=== PATIENT | female | born 1990 | race Caucasian/White ===

== ENCOUNTER 2018-11-09 12:53 | Inpatient (IN) ==
[2018-11-09] MEDS ORDERED: OXYTOCIN 30 UNITS/500 ML BAG IV PRN (15:17)
[2018-11-09] MEDS ORDERED: miSOPROStol 25 MCG TAB PV ONE (15:17)
--- NOTE | 2018-11-09 15:39 | History & Physical Report ---
Date of Service November 09, 2018 Assessment & Plan (1) Group B Streptococcus carrier state affecting : will start pcn when in labor (2) Prolonged , antepartum: Plan vaginal cytotec for cervical ripening. pitocin when indicated. arom when indicated. fetus categroy one. History of Present Illness Chief Complaint: induction Primary Care Provider: NO PCP Patient is a 28yowf with iup at 41 3/7 weeks who presents for induction of labor. Had attempted to place a larkin last night and was unsuccessful. No contractions/lof/vb. +FM. labs--O+/ab-/pap nl/ri/rprnr/hepb-/hiv-/gc/ct-/gtt x 2 nl/ declined cf/sma/genetics /gbs+ Allergies Allergy/AdvReac Type Severity Reaction Status Date / Time azithromycin [From Zithromax] Allergy Verified 11/02/18 14:34 cefixime [From Suprax] Allergy Verified 11/02/18 14:34 clomiphene [From Clomid] Allergy Verified 11/02/18 14:34 Home Medications Home Medications Medication Instructions Recorded Confirmed Type vit-iron fum-folic ac 1 tab PO DAILY 11/09/18 11/09/18 History [ Vitamin] Patient History Social History Preferred Language: Frisian Communication Ability: Effective Perinatal Director Required: No Beliefs That Will Affect Care: None marital status: Current Living Situation: Spouse Other Information That Helps Us Care for You: No Feels Safe at Home: Yes Safety Concerns: Feels Safe At This Time Smoking Status: Never smoker Do You Dip or Chew Tobacco: No ; Second Hand Exposure: No ; Tobacco Cessation Education Requested by Patient: No Hx Alcohol Use: No Hx Substance Use: No OB History g1--present 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 This is a spontaneous . no stds, no abnl paps. Review of Systems All systems reviewed & are unremarkable except as noted in HPI & below Physical Exam Constitutional: WD/WN, vitals as above Gastrointestinal (Abdomen): soft, gravid, nt Psychiatric: A+Ox3, euthymic affect Genitourinary: cx--cl/50/-2/post/mod toco--mpme ef,--120s with mod variability, accels to 150s, no decels. Results & Data Vital Signs (Past 12 Hours) Vital Signs Temp Pulse Resp BP 11/09/18 14:52 37.2 C 72 20 137/74 Code Status & VTE Plan VTE Prophylaxis Plan VTE Prophylaxis will be ordered: No
[2018-11-09] MEDS ORDERED: PENICILLIN G POTASSIUM 6 MU in DEXTROSE 5% 250 ML IV STA (15:42)
[2018-11-09 15:43] LABS: Hematocrit (blood only) 34.2 % (37-47); Hemoglobin 11.8 g/dL (12.0-16.0); Mean Corpuscular Hemoglobin 29.6 pg (25-34); Mean Corpuscular Volume 85.7 fL (80-100); Mean Platelet Volume 9.5 fL (7.4-10.4); Platelet Count 285 K/uL (130-400); RDW Coefficient of Variation 13.5 % (11.5-14.5); RDW Standard Deviation 41.6 fL (36.4-46.3); Red Blood Count 3.99 M/uL (4.2-5.4); White Blood Count 10.33 K/uL (4.8-10.8)
[2018-11-09 16:08] LABS: Mean Corpuscular Hgb Conc 34.5 g/dL (32-36)
--- NOTE | 2018-11-09 21:02 | Labor Progress Brief Note ---
Date of Service November 09, 2018 Subjective comfortable, not really feeling contractions Assessment & Plan (1) Supervision of normal intrauterine in primigravida: category one fetus (2) Unfavorable cervix in term : kayce too frequently for another cytotec and do not think going to be able to place larkin. Will wait a few hours and recheck. If contractions space, will place another cytotec or if think can get larkin in would do that with pitocin. agreeable to plan. Physical Exam Constitutional: WD/WN, vitals as above Psychiatric: A+Ox3, euthymic affect Genitourinary: cx--cl/50/-2 toco--q2-3min efm--category one Results & Data Vital Signs (Past 12 Hours) Vital Signs Temp Pulse Resp BP 11/09/18 19:05 37.1 C 16 11/09/18 19:02 70 134/77 11/09/18 18:11 69 130/73 11/09/18 18:10 37.2 C 20 11/09/18 14:52 37.2 C 72 20 137/74
--- NOTE | 2018-11-10 00:15 | Labor Progress Brief Note ---
Date of Service November 10, 2018 Subjective comfortable Assessment & Plan (1) Group B Streptococcus carrier state affecting : start pcn now (2) Unfavorable cervix in term : Still kayce too frequently for another cytotec. therefore, will proceed with low dose pitocin overnight and recheck cx in the am. fetus category one. patient agreeable. Physical Exam Constitutional: WD/WN, vitals as above Psychiatric: A+Ox3, euthymic affect Genitourinary: cx--deferred efm--130s with mod variability, accels to 160s, no decels toco--q2-3min Results & Data Vital Signs (Past 12 Hours) Vital Signs Temp Pulse Resp BP 11/09/18 19:05 37.1 C 16 11/09/18 19:02 70 134/77 11/09/18 18:11 69 130/73 11/09/18 18:10 37.2 C 20 11/09/18 14:52 37.2 C 72 20 137/74
[2018-11-10] MEDS: LACTATED RINGER'S 1,000 ML IV PRN ×5 (00:22→21:48)
[2018-11-10] MEDS: OXYTOCIN 30 UNITS/500 ML BAG IV PRN (00:44)
[2018-11-10] MEDS: PENICILLIN G POTASSIUM 3 MU in DEXTROSE 5% 100 ML IV PRN ×5 (04:17→20:11)
--- NOTE | 2018-11-10 06:58 | Labor Progress Brief Note ---
Date of Service November 10, 2018 Subjective Was able to sleep overnight. Not feeling contractions. Assessment & Plan (1) Unfavorable cervix in term : Chavira bulb placed (2) Group B Streptococcus carrier state affecting : PCN running (3) Supervision of normal intrauterine in primigravida: Start to increase pitocin per protocol. Fetus category one. Physical Exam Constitutional: WD/WN, vitals as above Psychiatric: A+Ox3, euthymic affect Genitourinary: cx--1/80/-2/firm/post Chavira bulb placed this am under direct visualization toco--q1-4min, pit at 2 efm--120s with mod variability, +accels , no decels Results & Data Vital Signs (Past 12 Hours) Vital Signs Temp Pulse Resp BP 11/10/18 05:39 67 120/71 11/10/18 04:17 63 123/73 11/10/18 02:35 68 125/73 11/10/18 01:36 67 119/68 11/10/18 00:46 69 119/71 11/10/18 00:45 37.1 C 18 11/09/18 19:05 37.1 C 16 11/09/18 19:02 70 134/77
[2018-11-10] MEDS ORDERED: BUTORPHANOL TARTRATE 1 MG/ML VIAL IV ONE (07:44)
[2018-11-10] MEDS: BUTORPHANOL TARTRATE 1 MG/ML VIAL IV PRN ×3 (12:42→18:10)
[2018-11-10] MEDS ORDERED: ePHEDrine sulfate 50 MG/ML AMP ONE (19:02)
[2018-11-10] MEDS ORDERED: BUPIVACAINE 0.25% 30 ML VIAL ONE (19:02)
[2018-11-10] MEDS ORDERED: fentaNYL citrate 100 MCG/2 ML VIAL ONE (19:03)
[2018-11-10] MEDS ORDERED: fentaNYL 2MCG/ML ROPIV 1.25MG/ML 100 ML BAG EPI ONE (19:03)
--- NOTE | 2018-11-10 20:45 | Anesthesiology Consultation ---
Date of Service November 10, 2018 Assessment & Plan (1) Encounter for pre-operative examination: Chart Review Chart Review: Patient NOT seen in Pre Admission Testing and Acceptable Risk for Labor Epidural Consults Requested none History Height/Weight Height: 5 ft 4 in Weight: 94.801 kg Allergies Allergy/AdvReac Type Severity Reaction Status Date / Time azithromycin [From Zithromax] Allergy Verified 11/02/18 14:34 cefixime [From Suprax] Allergy Verified 11/02/18 14:34 clomiphene [From Clomid] Allergy Verified 11/02/18 14:34 Medications Home Medications Medication Instructions Recorded Confirmed Last Taken vit-iron fum-folic ac 1 tab PO DAILY 11/09/18 11/09/18 11/09/18 04:30 [ Vitamin] Active Medications Generic Name Dose Route Start Last Admin Trade Name Freq PRN Reason Stop Dose Admin Butorphanol Tartrate 1 mg 11/10/18 12:30 11/10/18 18:10 Stadol IV 12/10/18 12:29 1 mg Q2H PRN Administration Pain Lactated Ringer's 1,000 mls @ 125 mls/hr 11/09/18 15:17 11/10/18 20:12 Lr IV 11/11/18 15:16 0 mls/hr .Q8H PRN Infusion L&D Protocol Protocol Penicillin G Potassium 3 mu/ 106 mls @ 100 mls/hr 11/09/18 15:42 11/10/18 20:11 Dextrose IV 11/19/18 15:41 100 mls/hr Q4H PRN Administration Give until delivery Oxytocin 30 units in 500 mls @ 18 mls/hr 11/10/18 00:11 11/10/18 20:43 Pitocin IV 11/12/18 00:10 1.08 units/hr .Q24H PRN 18 mls/hr Labor Induction/Augmentation Titration Protocol 1.08 UNITS/HR Past Medical History Medical History History of asthma History of varicella Hx of migraines Past Surgical History Surgical History S/P laparoscopy Social History Smoking Status: Never smoker Do You Dip or Chew Tobacco: No Hx Alcohol Use: No Hx Substance Use: No substance use type: does not use Physical Exam Vital Signs Last Vital Signs Temp 36.7 C 11/10/18 19:00 Pulse 75 11/10/18 20:42 Resp 20 11/10/18 19:00 BP 132/60 11/10/18 20:42 Pulse Ox 99 11/10/18 20:38 Testing Laboratory Results 11/09/18 15:31
[2018-11-11] MEDS: PENICILLIN G POTASSIUM 3 MU in DEXTROSE 5% 100 ML IV PRN ×2 (00:11→04:23)
[2018-11-11] MEDS ORDERED: DiphenhydrAMINE HCL 50 MG/ML VIAL IV PRN (01:44)
[2018-11-11] MEDS ORDERED: NALBUPHINE HCL INJ 10 MG/ML AMP IV PRN (01:44)
[2018-11-11] MEDS ORDERED: fentaNYL 2MCG/ML ROPIV 1.25MG/ML 100 ML BAG EPI PRN (01:44)
[2018-11-11] MEDS ORDERED: NALOXONE HCL 0.4 MG/1 ML VIAL/CARP IV PRN (01:44)
[2018-11-11] MEDS ORDERED: NALOXONE HCL 1 MG in SODIUM CHLORIDE 0.9% 1000ML 1,000 ML IV PRN (01:44)
[2018-11-11] MEDS ORDERED: ONDANSETRON INJ 2 MG/ML 2 ML VIAL IV PRN (01:44)
[2018-11-11] MEDS ORDERED: ePHEDrine sulfate 50 MG/ML AMP IV PRN (01:44)
[2018-11-11] MEDS: LACTATED RINGER'S 1,000 ML IV PRN (04:23)
[2018-11-11] MEDS: OXYTOCIN 30 UNITS/500 ML BAG IV PRN (05:51)
[2018-11-11] MEDS ORDERED: BENZOCAINE 20% AER SPR 82.5 GM CAN EXT PRN (06:02)
[2018-11-11] MEDS ORDERED: DIPHTHERIA/TETANUS/PERTUSSIS 0.5 ML SYR/VIAL IM ONE (06:02)
[2018-11-11] MEDS ORDERED: HYDROCORTISONE ACETATE 25 MG SUPP PR PRN (06:02)
[2018-11-11] MEDS ORDERED: OXYTOCIN 30 UNITS/500 ML BAG IV PRN (06:02)
[2018-11-11] MEDS ORDERED: OXYCODONE/ACETAMINOPHEN 5mg/325mg TAB PO PRN (06:02)
[2018-11-11] MEDS ORDERED: ACETAMINOPHEN 325 MG TAB PO PRN (06:02)
[2018-11-11] MEDS ORDERED: BISACODYL 10 MG SUPP PR PRN (06:02)
[2018-11-11] MEDS ORDERED: SUPERCREAM 0.870% 15 GM JAR EXT PRN (06:02)
[2018-11-11] MEDS: IBUPROFEN 600 MG TAB PO PRN ×2 (06:37→20:33)
--- NOTE | 2018-11-11 07:21 | Anesthesia Procedure Note ---
Date of Service November 11, 2018 Anesthesia Post Epidural Note Vital Signs Vital Signs: Temp Pulse Resp BP Pulse Ox 37.1 C 82 18 119/62 100 11/11/18 07:00 11/11/18 07:13 11/11/18 07:00 11/11/18 07:13 11/11/18 05:38 Pain Intensity Bilateral Abdomen: Pain Intensity: 0 Bilateral Episiotomy/Laceration: Pain Intensity: 2 Notes Mental Status: alert / awake / arousable and participated in evaluation Nausea / Vomiting: adequately controlled Pain: adequately controlled Airway Patency, RR, SpO2: stable & adequate BP & HR: stable & adequate Hydration State: stable & adequate Neuraxial Anesthesia: was administered and sensory block is resolving Anesthetic Complications: no major complications apparent Epidural: Removed without complications and With tip intact
--- NOTE | 2018-11-11 08:08 | Delivery Summary ---
DATE OF OPERATION: 11/11/2018 The patient is a 28-year-old G1, P0 who presented for induction of labor because of post-term at 41 and 4/7 weeks. She initially was to have a cervical balloon for ripening; however, the cervical os would not allow passage of the balloon. She presented on the morning of 11/09 for further induction via Cytotec followed by low-dose Pitocin overnight. On the morning of 11/10, the cervix was then 1 cm dilated and a cervical balloon was able to be passed without difficulty. The Pitocin was then continued on augmentation mode. She expelled the cervical balloon at approximately 1700 hours. At 2000 hours, she was requesting epidural analgesia, which gave her significant relief. Membranes were ruptured at approximately 2100 hours for clear fluid. She was 4-5 cm dilated at that time and 100% effaced. She then progressed with continued Pitocin augmentation of her labor to full dilation. She pushed effectively over intact perineum for delivery of a viable male infant. After the 's head was delivered, the rest of the infant delivered easily and was placed on the mother's abdomen for further attention and drying. There was poor respiratory effort. After the cord was clamped and cut, the infant was moved to the baby bed for further attention and drying, at which point with stimulation, began to cry vigorously and was moving all 4 limbs. The placenta was expressed intact with a 3-vessel cord. A second-degree perineal laceration was repaired with 3-0 chromic in the usual fashion. bleeding was controlled with dilute Pitocin. Estimated blood loss was 400 mL. Mother and infant were doing well after delivery. I attest to the content of the Intraoperative Record and any orders documented therein. Any exception s are noted below.
[2018-11-11] MEDS: DOCUSATE SODIUM 100 MG CAP PO SCH (20:34)
[2018-11-12] MEDS: IBUPROFEN 600 MG TAB PO PRN ×3 (06:31→20:47)
--- NOTE | 2018-11-12 06:42 | Obstetrical Progress Note ---
Date of Service November 12, 2018 Assessment & Plan (1) Unfavorable cervix in term : -PPD#1 -Vitals reviewed, WNL (Tmax 38.6) - GBS +, Blood Type O+ - Clinically stable. - Feels well today. Eating well, voiding well, ambulating well. - Pain well controlled. - Routine post- care. Day #:: 1 Subjective Ambulation: ambulating normally Voiding: no voiding problems Passing Gas:: Yes (no stool) Diet Tolerance:: regular diet Lochia:: Moderate Feeding Type:: bottle feeding (Blue Simulac ) Current Pain Level(1-10): 0 Patient is a 28 PPD#1. Patient states that she is feeling well today and that her pain is well controlled. She has no other complaints at this time. Constitutional: no fever and no chills Respiratory: no cough, no dyspnea and no wheezing Cardiovascular: + edema; no chest pain, no dyspnea, no palpitations and no calf pain Breast: no breast pain Gastrointestinal: no abdominal pain, no nausea and no vomiting Genitourinary (female): no dysuria and no difficulty urinating Neurologic: no headache(s) Physical Exam Constitutional WD/WN, vitals as above Respiratory normal respiratory effort, lungs clear to auscultation Cardiovascular Rate/Rhythm: regular rate and regular rhythm Heart Sounds: normal S1 and normal S2; no click, no gallop, no murmur and no cardiac rub Extremities: + edema (+1); no calf tenderness Gastrointestinal (Abdomen) Inspection/Auscultation: abdomen normal to inspection and normal bowel sounds Percussion/Palpation: + abdomen tender (Slight tenderness to palpation of lower quadrants of abdomen) and abdomen soft Genitourinary OB Exam Abdomen: + fundal height Fundus: + firm and + relation to umbilicus (2cm below); not tender and not boggy Results & Data Vital Signs (Past 12 Hours) Vital Signs Temp Pulse Resp BP 11/12/18 04:00 36.7 C 77 18 110/71 11/12/18 00:00 36.9 C 80 18 106/70 11/11/18 22:05 37.6 C H 11/11/18 20:35 38.6 C H 98 H 18 127/81 Medications Administered Current Inpatient Medications Acetaminophen (Tylenol) 650 mg PO Q6H PRN PRN Reason: Pain/UGALDE/Fever Stop: 12/11/18 06:01 Benzocaine (Dermoplast Pain Relieving [place]) 1 appln EXT PRN PRN PRN Reason: Perineal Discomfort Stop: 12/11/18 06:01 Last Admin: 11/11/18 06:38 Dose: 82.5 appln Documented by: Bisacodyl (Dulcolax) 10 mg [place] DAILY PRN PRN Reason: No BM on 2nd post- day Stop: 12/11/18 06:01 Bisacodyl (Dulcolax) 5 mg PO 1999 [facility] Stop: 11/12/18 20:01 Cocaine HCl (Supercream 0.870%) 1 gm EXT BID PRN PRN Reason: Hemorrhoidal Inflammation Stop: 11/25/18 06:01 Last Admin: 11/11/18 11:58 Dose: 15 gm Documented by: Docusate Sodium (Colace) 100 mg PO DAILY@08,21 [facility] Stop: 12/11/18 07:59 Last Admin: 11/11/18 20:34 Dose: 100 mg Documented by: Hydrocortisone (Anusol Hc) 25 mg [place] BID PRN PRN Reason: Hemorrhoidal Inflammation Stop: 12/11/18 06:01 Oxytocin (Pitocin) 30 units in 500 mls @ 333.333 mls/hr IV .Q1H30M PRN; Protocol PRN Reason: Bleeding Control Stop: 12/09/18 15:16 Oxytocin (Pitocin) 30 units in 500 mls @ 333.333 mls/hr IV .Q1H30M PRN; Protocol PRN Reason: Bleeding Control Stop: 12/11/18 06:01 Ibuprofen (Motrin) 600 mg PO Q4H PRN PRN Reason: Pain/UGALDE/Cramping/Fever Stop: 12/11/18 06:01 Last Admin: 11/12/18 06:31 Dose: 600 mg Documented by: Oxycodone/Acetaminophen (Percocet 5mg/325mg) 1 tab PO Q4H PRN PRN Reason: Pain not relieved by... Stop: 11/25/18 06:01 Prenat Multivit/Information Systems Coordinator/Iron/Folic Ac ( Vitamin) 1 tab PO DAILY@08 [facility] Stop: 12/11/18 07:59
[2018-11-12 07:19] LABS: Hematocrit (blood only) 29.7 % (37-47); Hemoglobin 9.9 g/dL (12.0-16.0); Mean Corpuscular Hemoglobin 29.4 pg (25-34); Mean Corpuscular Hgb Conc 33.3 g/dL (32-36); Mean Corpuscular Volume 88.1 fL (80-100); Mean Platelet Volume 9.5 fL (7.4-10.4); Platelet Count 230 K/uL (130-400); RDW Coefficient of Variation 14.1 % (11.5-14.5); RDW Standard Deviation 45.1 fL (36.4-46.3); Red Blood Count 3.37 M/uL (4.2-5.4); White Blood Count 15.82 K/uL (4.8-10.8)
[2018-11-12] MEDS: DOCUSATE SODIUM 100 MG CAP PO SCH ×2 (08:49→20:47)
[2018-11-12] MEDS: PRENATAL VITAMIN 1 TAB PO SCH (08:49)
[2018-11-12 18:08] LABS: Basophils # (auto) 0.01 K/uL (0-0.2); Basophils % (auto) 0.1 %; Eosinophils # (auto) 0.12 K/uL (0-0.5); Eosinophils % (auto) 0.7 %; Hematocrit (blood only) 30.8 % (37-47); Hemoglobin 10.1 g/dL (12.0-16.0); Immature Granulocytes # (auto) 0.07 K/uL (0.00-0.02); Immature Granulocytes % (auto) 0.4 %; Lymphocytes # (auto) 2.33 K/uL (1.2-3.4); Lymphocytes % (auto) 13.5 %; Mean Corpuscular Hemoglobin 28.8 pg (25-34); Mean Corpuscular Hgb Conc 32.8 g/dL (32-36); Mean Corpuscular Volume 87.7 fL (80-100); Mean Platelet Volume 9.5 fL (7.4-10.4); Monocytes # (auto) 1.13 K/uL (0.11-0.59); Monocytes % (auto) 6.5 %; Neutrophils # (auto) 13.63 K/uL (1.4-6.5); Neutrophils % (auto) 78.8 %; Platelet Count 258 K/uL (130-400); RDW Coefficient of Variation 14.1 % (11.5-14.5); RDW Standard Deviation 45.4 fL (36.4-46.3); Red Blood Count 3.51 M/uL (4.2-5.4); White Blood Count 17.29 K/uL (4.8-10.8)
[2018-11-12] MEDS ORDERED: PSEUDOEPHEDRINE HCL 30 MG TAB PO PRN (18:54)
[2018-11-12] MEDS ORDERED: BISACODYL 5 MG TABEC PO SCH (20:00)
[2018-11-13 06:29] LABS: Hematocrit (blood only) 28.9 % (37-47); Hemoglobin 9.6 g/dL (12.0-16.0)
--- NOTE | 2018-11-13 07:24 | Obstetrical Progress Note ---
Date of Service <DO Zander Barron Last Filed: 11/13/18 07:26> November 13, 2018 Assessment & Plan <DO Zander Barron Last Filed: 11/13/18 07:26> (1) Unfavorable cervix in term : -PPD#2 -Vitals reviewed, WNL (Tmax 36.9) - GBS +, Blood Type O+ - Clinically stable. - Feels well today. Eating well, voiding well, ambulating well. - Pain well controlled. - Routine post- care. - Patient counseled on discharge. Day #:: 2 Subjective <DO Zander Barron Last Filed: 11/13/18 07:26> Ambulation: ambulating normally Voiding: no incontinence Passing Gas:: Yes (passing stool) Diet Tolerance:: regular diet Lochia:: Moderate Feeding Type:: bottle feeding Current Pain Level(1-10): 0 Patient is a 28 PPD#2. Patient states that she is feeling well today and that her pain is well controlled. She has no other complaints at this time. Constitutional: no fever and no chills Respiratory: no cough, no dyspnea and no wheezing Cardiovascular: + edema; no chest pain, no dyspnea, no palpitations and no calf pain Breast: no breast pain Gastrointestinal: no abdominal pain, no nausea and no vomiting Genitourinary (female): no dysuria and no difficulty urinating Neurologic: no headache(s) Physical Exam <DO Zander Barron Last Filed: 11/13/18 07:26> Constitutional WD/WN, vitals as above Respiratory normal respiratory effort, lungs clear to auscultation Cardiovascular Rate/Rhythm: regular rate and regular rhythm Heart Sounds: normal S1 and normal S2; no click, no gallop, no murmur and no cardiac rub Extremities: + edema (+1); no calf tenderness Gastrointestinal (Abdomen) Inspection/Auscultation: abdomen normal to inspection and normal bowel sounds Percussion/Palpation: + abdomen tender (Slight tenderness to palpation of lower quadrants of abdomen) and abdomen soft Genitourinary OB Exam Abdomen: + fundal height Fundus: + firm and + relation to umbilicus (2cm below); not tender and not boggy Results & Data <DO Zander Barron Last Filed: 11/13/18 07:26> Vital Signs (Past 12 Hours) Vital Signs Temp Pulse Resp BP 11/12/18 23:05 36.9 C 80 18 119/74 11/12/18 19:45 36.9 C 122 H 18 122/78 Laboratory Results Abnormal lab results 11/12/18 11/13/18 Range/Units 17:55 06:05 WBC 17.29 H (4.8-10.8) K/uL RBC 3.51 L (4.2-5.4) M/uL Hgb 10.1 L 9.6 L (12.0-16.0) g/dL Hct 30.8 L 28.9 L (37-47) % Immature Gran # (Auto) 0.07 H (0.00-0.02) K/uL Neut # (Auto) 13.63 H (1.4-6.5) K/uL Weber # (Auto) 1.13 H (0.11-0.59) K/uL Medications Administered Current Inpatient Medications Acetaminophen (Tylenol) 650 mg PO Q6H PRN PRN Reason: Pain/UGALDE/Fever Stop: 12/11/18 06:01 Benzocaine (Dermoplast Pain Relieving [place]) 1 appln EXT PRN PRN PRN Reason: Perineal Discomfort Stop: 12/11/18 06:01 Last Admin: 11/11/18 06:38 Dose: 82.5 appln Documented by: Bisacodyl (Dulcolax) 10 mg [place] DAILY PRN PRN Reason: No BM on 2nd post- day Stop: 12/11/18 06:01 Cocaine HCl (Supercream 0.870%) 1 gm EXT BID PRN PRN Reason: Hemorrhoidal Inflammation Stop: 11/25/18 06:01 Last Admin: 11/11/18 11:58 Dose: 15 gm Documented by: Docusate Sodium (Colace) 100 mg PO DAILY@08,21 [facility] Stop: 12/11/18 07:59 Last Admin: 11/12/18 20:47 Dose: 100 mg Documented by: Hydrocortisone (Anusol Hc) 25 mg [place] BID PRN PRN Reason: Hemorrhoidal Inflammation Stop: 12/11/18 06:01 Oxytocin (Pitocin) 30 units in 500 mls @ 333.333 mls/hr IV .Q1H30M PRN; Protocol PRN Reason: Bleeding Control Stop: 12/09/18 15:16 Oxytocin (Pitocin) 30 units in 500 mls @ 333.333 mls/hr IV .Q1H30M PRN; Protocol PRN Reason: Bleeding Control Stop: 12/11/18 06:01 Ibuprofen (Motrin) 600 mg PO Q4H PRN PRN Reason: Pain/UGALDE/Cramping/Fever Stop: 12/11/18 06:01 Last Admin: 11/12/18 20:47 Dose: 600 mg Documented by: Oxycodone/Acetaminophen (Percocet 5mg/325mg) 1 tab PO Q4H PRN PRN Reason: Pain not relieved by... Stop: 11/25/18 06:01 Prenat Multivit/Telephone Exchange Operator/Iron/Folic Ac ( Vitamin) 1 tab PO DAILY@08 [facility] Stop: 12/11/18 07:59 Last Admin: 11/12/18 08:49 Dose: 1 tab Documented by: Pseudoephedrine HCl (Suphedrine Sinus Congestion) 30 mg PO Q6H PRN PRN Reason: Congestion Stop: 12/12/18 18:53 <Therese Carrion MD, FACOG - Last Filed: 11/13/18 08:02> Co-Signing Physician Notes Resident Physician Supervision Note: I was present with Dr. Alanis during the history and exam. I discussed the case with the resident and agree with the findings and plan as documented in the note. Any exceptions or clarifications are listed here: Doing well, no temps, having some nasal congestion. stable for d/c home. instructions reviewed. Documented By: Therese Carrion MD, FACOG Resident Activity Tracking <Waqar Alanis DO - Last Filed: 11/13/18 07:26> Resident Involvement: Resident Care Provided Care Provided: OB Delivery
[2018-11-13] MEDS: PRENATAL VITAMIN 1 TAB PO SCH (09:26)
[2018-11-13] MEDS: DOCUSATE SODIUM 100 MG CAP PO SCH (09:26)
== END 2018-11-13 10:45 | disposition home or self-care (01) | DRG 807 ==
LOC: 4S1 14:42 → 4S2 11-11 08:49